=== PATIENT | male | born 1970 | race Caucasian/White ===

== ENCOUNTER 2018-12-24 23:54 | Inpatient (IN) | payer SELFPAY ==
[2018-12-25] MEDS ORDERED: Ondansetron ODT 4 MG TAB SL PRN (01:57)
[2018-12-25] MEDS ORDERED: Ondansetron PF 4 MG/2 ML Vial IVP PRN (01:57)
[2018-12-25] MEDS ORDERED: Sodium Chloride 0.9% 1,000 ML IV SCH (01:57)
[2018-12-25 02:02] VITALS: BMI 31.6
[2018-12-25] MEDS ORDERED: hydrALAZINE 20 MG/ML VIAL SLOW IVP PRN (04:05)
--- NOTE | 2018-12-25 04:08 | PDOC.EVN ---
Event Note - Event Note Event Note: Reviewed patients chart, as to be seen by AM team per attending. Noticed BP elevated 200 systolic, now 180s, ordered Hydralazine 5 mg PRN. A consult has already been placed to Neuro. I have added an MRI Brain. Per ED Report taken: CT Brain negative. Patient with symptoms for >24 hours. Will add carotid US and Echo. Further recommendations per day team.
[2018-12-25] MEDS ORDERED: Aspirin Chewable 81 MG TAB PO SCH (09:00)
[2018-12-25] MEDS: cloNIDine 0.1 MG TAB PO PRN ×2 (09:15→20:51)
[2018-12-25] MEDS: Amlodipine 10 MG TAB PO SCH (09:17)
[2018-12-25] MEDS: Heparin 5,000 UNITS/ML VIAL SC SCH ×2 (09:17→20:51)
--- NOTE | 2018-12-25 09:45 | ULT ---
US Carotid Doppler STANDARD HISTORY: Stroke COMPARISON: None. FINDINGS: Real-time color Doppler evaluation the right and left carotid systems was performed. This s hows minimal plaque formation. On the right side peak systolic velocities of the common carotid were 98 cm/s. Internal carotid veloc ities 91 cm/s and external carotid velocities were 113 cm/s. On the left side peak systolic velocities the common carotid were 96 cm/s. Internal carotid velocity 62 cm/s and external carotid velocity 70 once Vertebral flow is antegrade bilaterally. IMPRESSION: No evidence of hemodynamically significant stenosis of either internal carotid artery.
--- NOTE | 2018-12-25 10:23 | MRI ---
Exam: Brain MRI without contrast HISTORY: Left-sided weakness. Eval for CVA. COMPARISON: None FINDINGS: Calvarial marrow signal intensity: Appropriate T1 signal Gradient echo sequence: No hemorrhage Brain parenchyma: No mass, mass effect or midline shift. Brain volume, age-appropriate. Cortical crandall-white matter differentiation: Preserved Restricted diffusion: Central arterial flow is maintained. There is a focus of T2 and FLAIR hyperinte nsity involving the lateral aspect of the right thalamus. There is associated restricted diffusion. White matter signal intensities:No significant T2 or FLAIR white matter hyperintensities. Sinuses: Adequate aeration of the paranasal sinuses and mastoid air cells. IMPRESSION: Acute infarct involving the lateral aspect of the right thalamus
--- NOTE | 2018-12-25 10:29 | PDOC.EVN ---
Event Note - Event Note Event Note: H&P dictated #[id number]
[2018-12-25] MEDS ORDERED: ISOVUE-370 76%-LOCM 1 ML ONE (11:36)
[2018-12-25] MEDS ORDERED: Aspirin 81 mg Enteric Coated Tablet PO SCH (14:15)
--- NOTE | 2018-12-25 16:43 | CT ---
Exam: Noncontrast head CT Postcontrast head CT Postcontrast soft tissue neck CT CT angiogram of the head and neck History: Right thalamic infarct Comparison: None TECHNIQUE: CT angiogram of the head and neck are performed in the axial plane. Three-dimensional refo rmatted images are submitted FINDINGS: Noncontrast head CT: No parenchymal hemorrhage or extra-axial hematoma. No midline shift Basilar cisterns are patent. Brain volume, age-appropriate. Cortical crandall-white matter differentiation preserved. No evidence of hydrocephalus. Calvarium is intact. Postcontrast head CT: No pathologic enhancement of the brain parenchyma. Subtle hypodensity along the lateral margin of the right thalamus is noted and corresponds to recent MRI. Postcontrast soft tissue neck CT Orbits are unremarkable. Aerodigestive tract is patent. Limited eval uation the oral cavity due to dental amalgam artifact. Midline fatty raphae of the tongue is preserved.. Symmetric attenuation of the parotid and submandibular glands. Unremarkable thyroid gland. Symmetric attenuation sternocleidomastoid muscles. No evidence of lymphadenopathy by size criteria There are varying degrees of central canal stenosis and foraminal narrowing due to degenerative daniel e. Vertebral body height is maintained. No fracture Mediastinum is unremarkable. Patchy groundglass infiltrate in the superior segment of the right lower lobe CT ANGIOGRAM: Unremarkable aorta. Right carotid: There is appropriate enhancement and luminal diameter the right common carotid artery, carotid bifurcation and internal carotid artery. Left carotid: There is appropriate enhancement and luminal diameter the left carotid artery origin, c ommon carotid artery, carotid bifurcation and internal carotid artery. Cervical vertebral arteries are patent throughout the course of the neck. Left vertebral artery is do minant. Subclavian arteries are patent. CT angiogram the head Intracranial internal carotid arteries have enhancement and luminal diameter. Anterior circulation: Symmetric enhancement and luminal diameter the A1 and M1 segments. Proximal A2 segments and proximal MCA branches are unremarkable. There is appropriate enhancement and luminal diameter. Posterior circulation: Right PICA artery origin is unremarkable. Limited evaluation the left PICA art bennie origin. Both vertebral arteries supply normal caliber basilar artery. The left and right P1 segments have symmetric enhancement and luminal diameter. IMPRESSION: 1. No evidence of significant stenosis at the level of [place] 2. No evidence of significant stenosis based upon NASCET criteria with regards to either cervical car otid artery. Transcribed Date/Time: 12/25/2018 5:23 PM
[2018-12-25] MEDS: Acetaminophen 325 MG TAB PO PRN (16:46)
--- NOTE | 2018-12-25 16:53 | HP ---
CHIEF COMPLAINT: Left-sided numbness. HISTORY OF PRESENT ILLNESS: This is a 48-year-old male, presenting with left-sided arm side and leg numbness as well as some mild speech problems yesterday. The patient does state that his speech problems have improved, but the numbness on the whole body on the left is still present. The patient states that he has never had this happened to him before. He denies any other associated symptoms. No other alleviating or aggravating factors. No pain issues. ALLERGIES: LISINOPRIL AND TRAMADOL. SOCIAL HISTORY: Nondrinker and nonsmoker. PAST MEDICAL HISTORY: Positive for hypertension, high cholesterol, as well as back pain. REVIEW OF SYSTEMS: All systems reviewed, pertinent positive in HPI, otherwise negative. HOME MEDICATIONS: See MAR. FAMILY HISTORY: Unknown. PHYSICAL EXAMINATION: VITAL SIGNS: Blood pressure 194/106, temperature of 97.7, pulse of 69, O2 saturations 94% on room air, and respiratory rate of 15. GENERAL: The patient is in no acute distress. Alert and oriented. HEENT: Pupils are equal, round, and reactive to light and accommodation. Extraocular muscles intact. Oral cavity moist and pink. NECK: Supple, mobile, and nontender. Thyroid appreciated. CARDIOVASCULAR: Regular rate and rhythm. S1 and S2. No murmurs, rubs, or gallops appreciated. ABDOMEN: Positive bowel sounds. Soft, nontender, and nondistended. PULMONARY: Clear to auscultation bilaterally. No rales, rhonchi, or wheezing appreciated. NEUROLOGICAL: Cranial nerves II through XII intact. Left-sided inspector fabric strength on the left hand as well as elbow flexion, shoulder abduction, left hip flexion, and left knee extension and flexion all slightly decreased as compared to the right. ASSESSMENT: 1. Transient ischemic attack, rule out cerebrovascular accident. 2. Left-sided numbness. 3. Hyperlipidemia. 4. Hypertension. 5. Back pain. PLAN: 1. At this point in time, we will stop the IV fluids. The patient has been having high blood pressure. We will also start the patient on atorvastatin and Norvasc 10 mg to be given daily to be started today. Hold if systolic less than 120. 2. The patient pending image studies. 3. Neurological evaluation also pending. 4. At this point in time, continue with workup. Images to be done. Neurological evaluation to be done. We will consider PT/OT depending on outcome. Echo also pending. The patient wishes to remain a full code. Case and plan discussed with patient at length. He understood and agreed with this plan. Job ID: [id number]
[2018-12-25] MEDS: Zolpidem Tartrate 5 MG TAB PO PRN (20:51)
[2018-12-25] MEDS: Atorvastatin Calcium 40 MG TAB PO SCH (20:51)
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
[2018-12-26 05:55] LABS: #Basophils 0.1 thou/uL (0.0-0.2); #Eosinphils 0.2 thou/uL (0.0-0.7); #Monocytes 0.5 thou/uL (0.11-0.59); #Neutrophils 3.8 thou/uL (1.40-6.50); %Basophils 0.9 % (0.0-1.0); %Eosinophils 2.9 % (0.0-10.0); %Lymphocytes 31.1 % (21.0-51.0); %Monocytes 7.1 % (0.0-10.0); Hemoglobin 14.2 g/dL (14.0-18.0); Mean Corpuscular HGB CONC 33.6 g/dL (32.0-36.0); Mean Corpuscular Hemoglobin 30.3 pg (27.0-31.0); Mean Corpuscular Volume 90.4 fL (78.0-98.0); Mean Platelet Volume 8.7 fL (7.4-10.4); Platelet Count 264 thou/uL (130-400); RBC Distribution Width 13.1 % (11.5-14.5); White Blood Cell (WBC) Count 6.5 thou/uL (4.8-10.8)
[2018-12-26 06:09] LABS: Anion Gap 11 mmol/L (10-20); BUN (Urea Nitrogen) 12 mg/dL (8.9-20.6); Calc. Creatinine Clearance 141 mL/min (70-130); Calcium 9.2 mg/dL (7.8-10.44); Carbon Dioxide 28 mmol/L (22-29); Chloride 103 mmol/L (98-107); Estimated GFR-MDRD Greater than 90; Glucose 90 mg/dL (70-105); Potassium 3.7 mmol/L (3.5-5.1); Sodium 138 mmol/L (136-145)
[2018-12-26] MEDS ORDERED: Senokot S 8.6-50 MG TAB PO PRN (07:13)
[2018-12-26] MEDS ORDERED: Diabetic Tussin 200 MG/10 ML UDCUP PO PRN (07:13)
[2018-12-26] MEDS ORDERED: Sodium Chloride 0.65% Nasal 44 ML BOT EA NARE PRN (07:13)
[2018-12-26] MEDS ORDERED: Ondansetron PF 4 MG/2 ML Vial IVP PRN (07:13)
[2018-12-26] MEDS ORDERED: Bisacodyl 10 MG SUPP PR PRN (07:13)
[2018-12-26] MEDS ORDERED: Artificial Tears 18 DROP/0.9 ML EA EYE PRN (07:13)
[2018-12-26] MEDS ORDERED: Loratadine 10 MG TAB PO PRN (07:13)
[2018-12-26] MEDS ORDERED: Loperamide HCl 2 MG CAP PO PRN (07:13)
[2018-12-26] MEDS ORDERED: Cepastat Lozenges 1 LOZ PO PRN (07:13)
[2018-12-26] MEDS ORDERED: Ondansetron ODT 4 MG TAB PO PRN (07:13)
[2018-12-26] MEDS: Heparin 5,000 UNITS/ML VIAL SC SCH ×2 (09:02→21:27)
[2018-12-26] MEDS: Amlodipine 10 MG TAB PO SCH (09:02)
[2018-12-26] MEDS: Aspirin 81 mg Enteric Coated Tablet PO SCH (09:03)
[2018-12-26 11:07] LABS: ALT (SGPT) 14 U/L (8-55); AST (SGOT) 16 U/L (5-34); Albumin 3.9 g/dL (3.5-5.0); Alkaline Phosphatase 71 U/L (40-150); Bilirubin, Direct 0.2 mg/dL (0.1-0.3); Bilirubin, Total 0.5 mg/dL (0.2-1.2); Cardiac Risk 7.3 (Less than 4.5); Cholesterol 254 mg/dl (< 200 Desired); HDL Cholesterol 35 mg/dL (>60 Neg Risk); LDL Cholesterol, Calculated 191 mg/dL; Protein, Total 6.9 g/dL (6.0-8.3); Triglycerides 139 mg/dL (Less than 150)
--- NOTE | 2018-12-26 11:15 | PRG ---
DATE OF TELEMEDICINE SERVICE WITH BRITTANY PILY: 12/26/2018 CHIEF COMPLAINT: Left-sided weakness and numbness. INTERVAL HISTORY: The patient reports his left side is much better and he is doing better, and he was even walking with the help of physical therapist. No new events are reported overnight. LABORATORY WORKUP: White count 6.5, hemoglobin 14.2, hematocrit 42.5, platelets 264. Chemistry; sodium 138, potassium 3.7, chloride 103, bicarb 28, BUN 12, creatinine 0.74. No new imaging studies are available. His echocardiogram report is showing estimated EF of 40% to 45% and mild diastolic dysfunction. PHYSICAL EXAMINATION: VITAL SIGNS: Temperature is 97.7, blood pressure is 146/86, pulse rate is 69, respiratory rate is 16. NEUROLOGICAL: Higher intellectual functions are normal. Cranial nerves, normal extraocular movement. No facial asymmetry noted. Decreased sensation of face on the left side. Sensory exam, decreased sensation of the left arm and leg and strength 5/5 throughout today. IMPRESSION: The patient is doing much better today compared to yesterday. He has a right thalamic infarct. At this time, he remains stable. This thalamic infarct is likely due to hypertensive event. RECOMMENDATION: Continue present plans for anti-platelet agent and follow up with Dr. Rose as outpatient. Job ID: [id number] [facility]
[2018-12-26 11:23] LABS: Syphilis Antibody Nonreactive (Nonreactive); Syphilis Antibody Index 0.04 S/CO (<1.00 Non-Reactive)
--- NOTE | 2018-12-26 11:26 | PDOC.PN ---
- Subjective Encounter Start Date: 12/26/18 Encounter Start Time: 07:30 -: old records requested/rev Patient seen and examined. No new complaints. No overnight events pt has numbness feeling on left side - Objective MAR Reviewed: Yes Vital Signs & Weight: Vital Signs (12 hours) Temp Pulse Resp BP BP Pulse Ox 12/26/18 09:02 62 157/94 H 12/26/18 03:51 97.6 F 69 16 146/86 H 97 12/25/18 23:32 97.7 F 79 16 132/81 95 Weight Weight 184 lb 6.4 oz I&O: 12/25/18 12/26/18 12/27/18 06:59 06:59 06:59 Intake Total 855 760 Output Total 300 1550 Balance 555 -790 Result Diagrams: 12/26/18 05:03 12/26/18 05:03 Radiology Reviewed by me: Yes EKG Reviewed by me: Yes Phys Exam - Physical Examination Constitutional: NAD HEENT: PERRLA, moist MMs, sclera anicteric Neck: no JVD, supple Respiratory: no wheezing, no rales, no rhonchi Cardiovascular: RRR, no significant murmur, no rub Gastrointestinal: soft, non-tender, no distention, positive bowel sounds Musculoskeletal: no edema, pulses present Neurological: non-focal, normal sensation Lymphatic: no nodes Psychiatric: normal affect, A&O x 3 Skin: no rash, normal turgor Dx/Plan (1) Acute CVA (cerebrovascular accident) Code(s): I63.9 - CEREBRAL INFARCTION, UNSPECIFIED Status: Acute Comment: Acute infarct in lateral aspect of right thalamus (2) Chronic low back pain Code(s): M54.5 - LOW BACK PAIN; G89.29 - OTHER CHRONIC PAIN Status: Chronic (3) Dyslipidemia Code(s): E78.5 - HYPERLIPIDEMIA, UNSPECIFIED Status: Chronic (4) Hypertension Code(s): I10 - ESSENTIAL (PRIMARY) HYPERTENSION Status: Chronic (5) Obesity (BMI 30.0-34.9) Code(s): E66.9 - OBESITY, UNSPECIFIED Status: Chronic (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 Review of Systems - Review of Systems ENT: negative: Ear Pain, Ear Discharge, Nose Pain, Nose Discharge, Nose Congestion, Mouth Pain, Mouth Swelling, Throat Pain, Throat Swelling, Other Respiratory: negative: Cough, Dry, Shortness of Breath, Hemoptysis, SOB with Excertion, Pleuritic Pain, Sputum, Wheezing Cardiovascular: negative: chest pain, palpitations, orthopnea, paroxysmal nocturnal dyspnea, edema, light headedness, other Gastrointestinal: negative: Nausea, Vomiting, Abdominal Pain, Diarrhea, Constipation, Melena, Hematochezia, Other Genitourinary: negative: Dysuria, Frequency, Incontinence, Hematuria, Retention , Other Musculoskeletal: negative: Neck Pain, Shoulder Pain, Arm Pain, Back Pain, Hand Pain, Leg Pain, Foot Pain, Other Skin: negative: Rash, Lesions, Carlito, Bruising, Other Neurological: Numbness. negative: Weakness, Incoordination, Change in Speech, Confusion, Seizures, Other - Medications/Allergies Allergies/Adverse Reactions: Allergies Allergy/AdvReac Type Severity Reaction Status Date / Time lisinopril Allergy Severe ANGIOEDEMA Verified 06/02/15 22:09 tramadol HCl [From Ultra] Allergy Severe SEIZURE Verified 06/02/15 22:09 Medications: Current Medications Acetaminophen (Tylenol) 650 mg PO Q4H PRN PRN Reason: Headache/Fever/Mild Pain (1-3) Last Admin: 12/25/18 16:46 Dose: 650 mg Amlodipine Besylate (Norvasc) 10 mg PO DAILY [facility] Last Admin: 12/26/18 09:02 Dose: 10 mg Artificial Tears (Tears Naturale) 2 drop EA EYE PRN PRN PRN Reason: Dry Eyes Aspirin (Ecotrin) 81 mg PO DAILY [facility] Last Admin: 12/26/18 09:03 Dose: 81 mg Atorvastatin Calcium (Lipitor) 40 mg PO HS [facility] Last Admin: 12/25/18 20:51 Dose: 40 mg Bisacodyl (Dulcolax) 10 mg MD DAILYPRN PRN PRN Reason: Constipation Clonidine (Catapres) 0.1 mg PO Q4H PRN PRN Reason: FOR SBP > 170mmHg Last Admin: 12/25/18 20:51 Dose: 0.1 mg Guaifenesin (Robitussin Sf) 200 mg PO Q4H PRN PRN Reason: Cough Heparin Sodium (Porcine) (Heparin) 5,000 units SC BID [facility] Last Admin: 12/26/18 09:02 Dose: 5,000 units Hydralazine HCl (Apresoline) 5 mg SLOW IVP Q4H PRN PRN Reason: SBP Greater Than 180 Last Admin: 12/25/18 06:00 Dose: 5 mg Loperamide HCl (Imodium) 2 mg PO PRN PRN PRN Reason: Diarrhea/Loose Stools Loratadine (Claritin) 10 mg PO DAILYPRN PRN PRN Reason: Sinus Symptoms Ondansetron HCl (Zofran Odt) 4 mg PO Q6H PRN PRN Reason: Nausea/Vomiting Ondansetron HCl (Zofran) 4 mg IVP Q6H PRN PRN Reason: Nausea/Vomiting Pantoprazole Sodium (Protonix) 40 mg PO DAILY [facility] Last Admin: 12/26/18 09:03 Dose: 40 mg Senna/Docusate Sodium (Senokot S) 2 tab PO BID PRN PRN Reason: Constipation Sodium Chloride ([place] 0.65%) 0 ml EA NARE QIDPRN PRN PRN Reason: Nasal Congestion Throat Lozenges (Cepastat Lozenges) 1 missael PO Q2H PRN PRN Reason: Sore Throat Zolpidem Tartrate (Ambien) 5 mg PO HSPRN PRN PRN Reason: Insomnia Last Admin: 12/25/18 20:51 Dose: 5 mg
[2018-12-26] MEDS: Acetaminophen 325 MG TAB PO PRN (13:56)
[2018-12-26] MEDS ORDERED: Carvedilol 3.125 MG TAB PO SCH (21:00)
[2018-12-26] MEDS: Atorvastatin Calcium 40 MG TAB PO SCH (21:27)
[2018-12-26] MEDS: Zolpidem Tartrate 5 MG TAB PO PRN (21:27)
[2018-12-27] MEDS: Aspirin 81 mg Enteric Coated Tablet PO SCH (08:30)
[2018-12-27] MEDS: Heparin 5,000 UNITS/ML VIAL SC SCH (08:30)
[2018-12-27] MEDS: Amlodipine 10 MG TAB PO SCH (08:30)
[2018-12-27] MEDS ORDERED: Carvedilol 6.25 MG TAB PO SCH (09:00)
--- NOTE | 2018-12-27 10:29 | PDOC.PN ---
- Subjective Encounter Start Date: 12/27/18 Encounter Start Time: 07:00 Patient seen and examined. No new complaints. No overnight events pt has numbness feeling on left side - Objective MAR Reviewed: Yes Vital Signs & Weight: Vital Signs (12 hours) Temp Pulse Resp BP BP BP Pulse Ox 12/27/18 08:30 66 169/107 H 12/27/18 07:15 97.8 F 66 18 169/107 H 98 12/27/18 04:00 97.5 F L 68 18 154/91 H 96 12/27/18 00:00 98.2 F 83 18 137/78 96 Weight Weight 184 lb 6.4 oz I&O: 12/26/18 12/27/18 12/28/18 06:59 06:59 06:59 Intake Total 760 1040 Output Total 1550 775 Balance -790 265 Result Diagrams: 12/26/18 05:03 12/26/18 05:03 EKG Reviewed by me: Yes Phys Exam - Physical Examination Constitutional: NAD HEENT: PERRLA, moist MMs, sclera anicteric Neck: no JVD, supple Respiratory: no wheezing, no rales, no rhonchi Cardiovascular: RRR, no significant murmur, no rub Gastrointestinal: soft, non-tender, no distention, positive bowel sounds Musculoskeletal: no edema, pulses present Neurological: non-focal, normal sensation, moves all 4 limbs Lymphatic: no nodes Psychiatric: normal affect, A&O x 3 Skin: no rash, normal turgor Dx/Plan (1) Acute CVA (cerebrovascular accident) Code(s): I63.9 - CEREBRAL INFARCTION, UNSPECIFIED Status: Acute Comment: Acute infarct in lateral aspect of right thalamus (2) Chronic low back pain Code(s): M54.5 - LOW BACK PAIN; G89.29 - OTHER CHRONIC PAIN Status: Chronic (3) Dyslipidemia Code(s): E78.5 - HYPERLIPIDEMIA, UNSPECIFIED Status: Chronic (4) Hypertension Code(s): I10 - ESSENTIAL (PRIMARY) HYPERTENSION Status: Chronic (5) Obesity (BMI 30.0-34.9) Code(s): E66.9 - OBESITY, UNSPECIFIED Status: Chronic (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 Review of Systems - Review of Systems Eyes: negative: Pain, Vision Change, Conjunctivae Inflammation, Eyelid Inflammation, Redness, Other ENT: negative: Ear Pain, Ear Discharge, Nose Pain, Nose Discharge, Nose Congestion, Mouth Pain, Mouth Swelling, Throat Pain, Throat Swelling, Other Respiratory: negative: Cough, Dry, Shortness of Breath, Hemoptysis, SOB with Excertion, Pleuritic Pain, Sputum, Wheezing Cardiovascular: negative: chest pain, palpitations, orthopnea, paroxysmal nocturnal dyspnea, edema, light headedness, other Gastrointestinal: negative: Nausea, Vomiting, Abdominal Pain, Diarrhea, Constipation, Melena, Hematochezia, Other Genitourinary: negative: Dysuria, Frequency, Incontinence, Hematuria, Retention , Other Musculoskeletal: negative: Neck Pain, Shoulder Pain, Arm Pain, Back Pain, Hand Pain, Leg Pain, Foot Pain, Other Skin: negative: Rash, Lesions, Carlito, Bruising, Other Neurological: Numbness. negative: Weakness, Incoordination, Change in Speech, Confusion, Seizures, Other - Medications/Allergies Allergies/Adverse Reactions: Allergies Allergy/AdvReac Type Severity Reaction Status Date / Time lisinopril Allergy Severe ANGIOEDEMA Verified 06/02/15 22:09 tramadol HCl [From [facility]] Allergy Severe SEIZURE Verified 06/02/15 22:09 Medications: Current Medications Acetaminophen (Tylenol) 650 mg PO Q4H PRN PRN Reason: Headache/Fever/Mild Pain (1-3) Last Admin: 12/26/18 13:56 Dose: 650 mg Amlodipine Besylate (Norvasc) 10 mg PO DAILY [facility] Last Admin: 12/27/18 08:30 Dose: 10 mg Artificial Tears (Tears Naturale) 2 drop EA EYE PRN PRN PRN Reason: Dry Eyes Aspirin (Ecotrin) 81 mg PO DAILY [facility] Last Admin: 12/27/18 08:30 Dose: 81 mg Atorvastatin Calcium (Lipitor) 40 mg PO HS [facility] Last Admin: 12/26/18 21:27 Dose: 40 mg Bisacodyl (Dulcolax) 10 mg DC DAILYPRN PRN PRN Reason: Constipation Carvedilol (Coreg) 6.25 mg PO BID [facility] Last Admin: 12/27/18 08:30 Dose: 6.25 mg Clonidine (Catapres) 0.1 mg PO Q4H PRN PRN Reason: FOR SBP > 170mmHg Last Admin: 12/25/18 20:51 Dose: 0.1 mg Guaifenesin (Robitussin Sf) 200 mg PO Q4H PRN PRN Reason: Cough Heparin Sodium (Porcine) (Heparin) 5,000 units SC BID [facility] Last Admin: 12/27/18 08:30 Dose: 5,000 units Hydralazine HCl (Apresoline) 5 mg SLOW IVP Q4H PRN PRN Reason: SBP Greater Than 180 Last Admin: 12/25/18 06:00 Dose: 5 mg Loperamide HCl (Imodium) 2 mg PO PRN PRN PRN Reason: Diarrhea/Loose Stools Loratadine (Claritin) 10 mg PO DAILYPRN PRN PRN Reason: Sinus Symptoms Ondansetron HCl (Zofran Odt) 4 mg PO Q6H PRN PRN Reason: Nausea/Vomiting Ondansetron HCl (Zofran) 4 mg IVP Q6H PRN PRN Reason: Nausea/Vomiting Pantoprazole Sodium (Protonix) 40 mg PO DAILY [facility] Last Admin: 12/27/18 08:30 Dose: 40 mg Senna/Docusate Sodium (Senokot S) 2 tab PO BID PRN PRN Reason: Constipation Sodium Chloride ([place] 0.65%) 0 ml EA NARE QIDPRN PRN PRN Reason: Nasal Congestion Throat Lozenges (Cepastat Lozenges) 1 missael PO Q2H PRN PRN Reason: Sore Throat Zolpidem Tartrate (Ambien) 5 mg PO HSPRN PRN PRN Reason: Insomnia Last Admin: 12/26/18 21:27 Dose: 5 mg
[2018-12-27] MEDS: Acetaminophen 325 MG TAB PO PRN (15:32)
[2018-12-27 20:17] VITALS: BP 165/95; TEMP 98.6
--- NOTE | 2018-12-28 06:46 | DIS ---
DATE OF ADMISSION: 12/25/2018 DATE OF DISCHARGE: 12/27/2018 PRIMARY CARE PHYSICIAN: [facility]. DISCHARGE DISPOSITION: Home. PRIMARY DISCHARGE DIAGNOSES: 1. Acute cerebrovascular accident. 2. Combined systolic and diastolic dysfunction. SECONDARY DISCHARGE DIAGNOSES: 1. Obesity. 2. Hypertension. 3. Dyslipidemia. 4. Chronic low back pain. PRIMARY PROCEDURES/OPERATIONS: None. RADIOLOGICAL INVESTIGATION: Carotid Doppler, MRI brain, [facility] [place], and echocardiography. SIGNIFICANT LABORATORY DATA: CBC normal. BMP normal. LDL 191. Syphilis negative. DISCHARGE MEDICATIONS: 1. Amlodipine 10 mg daily. 2. Aspirin 325 mg daily. 3. Lipitor 40 mg p.o. nightly. 4. Coreg 6.25 mg p.o. b.i.d. CONTRAINDICATION: None. CODE STATUS: Full code. INPATIENT ELECTRICAL SIGN SERVICER: Dr. Antonia Dougherty, neurologist. TEST RESULTS PENDING ON DISCHARGE: None. ALLERGIES: LISINOPRIL AND TRAMADOL. DISCHARGE PLAN: Posthospital, the patient will follow up with primary care physician in one week. HOSPITAL COURSE: A 48-year-old male, who was admitted by Dr. Raza. Please see his H and P for further details. The patient was admitted for acute onset of numbness, paresthesia on left side of body. He had an MRI brain which confirmed infarct in the right lateral thalamus that was contributing to his presentation. His carotid Doppler was normal. Echocardiography showed systolic and diastolic dysfunction. CT [facility] [place] was unremarkable. Neurology saw this patient while in hospital. This patient was evaluated by Stroke Team. He had significant improvement while in hospital. He had only little bit numbness on the left side on discharge. He had above-mentioned medication adjustment while in hospital. The patient was seen and examined at bedside today. Please see my progress note from that day. All new medication prescription given and medication assistance provided on the day of discharge. Job ID: [id number]
== END 2018-12-27 20:00 | disposition home or self-care (01) | DRG 65 ==
LOC: ERS 23:54 → OBSVTOIN 12-25 01:46 → 2SE 12-25 01:46
PROVIDERS: ADMIT Internal Medicine; ATTEND Internal Medicine
DX: I63.59 Cerebral infarction due to unspecified occlusion or stenosis of other cerebral artery (principal); G81.94 Hemiplegia, unspecified affecting left nondominant side; E78.00 Pure hypercholesterolemia, unspecified; I10 Essential (primary) hypertension; M54.5 Low back pain; I51.89 Other ill-defined heart diseases; R29.701 NIHSS score 1; Z88.5 Allergy status to narcotic agent; Z88.8 Allergy status to other drugs, medicaments and biological substances
CPT/HCPCS: 36415; 70496; 70498; 70551; 80048; 80061; 80076; 83090; 84443; 85025; 86780; 93306; 93880; 99285; J0360; J1644; Q9966

== ENCOUNTER 2019-01-09 00:54 | Emergency (ER) | payer SELFPAY | END 2019-01-09 02:03 | disposition home or self-care (01) | LOC: ERS 00:54 | DX: J30.9 Allergic rhinitis, unspecified (principal); I10 Essential (primary) hypertension; E78.5 Hyperlipidemia, unspecified; K21.9 Gastro-esophageal reflux disease without esophagitis; G62.9 Polyneuropathy, unspecified; F41.9 Anxiety disorder, unspecified; F32.9 Major depressive disorder, single episode, unspecified; Z79.899 Other long term (current) drug therapy | CPT/HCPCS: 99281 ==

== ENCOUNTER 2019-05-17 16:18 | Outpatient (CLI) | payer OTHER ==
--- NOTE | 2019-05-17 17:13 | RAD ---
PA AND LATERAL VIEWS CHEST: 05/16/19 HISTORY: Disability exam. Left sided stroke. Hypertension. FINDINGS: The heart size is normal. There is elevation of the right hemidiaphragm. No focal areas of consolidat ion, pneumothoraces or pleural effusions are seen. No acute thoracic abnormalities are identified. IMPRESSION: No acute process. POS: OFF
== END 2019-05-17 16:19 | disposition home or self-care (01) ==
LOC: BICRAD 16:18
PROVIDERS: ATTEND Internal Medicine
DX: Z02.71 Encounter for disability determination (principal)
CPT/HCPCS: 71046

== ENCOUNTER 2020-05-17 15:53 | Emergency (ER) | payer SELFPAY ==
[2020-05-17 16:21] LABS: #Eosinphils 0.1 thou/uL (0.0-0.7); #Lymphocytes 1.8 thou/uL (1.20-3.40); #Monocytes 0.6 thou/uL (0.11-0.59); #Neutrophils 5.9 thou/uL (1.40-6.50); %Basophils 0.2 % (0.0-1.0); %Eosinophils 1.4 % (0.0-10.0); %Lymphocytes 21.7 % (21.0-51.0); %Neutrophils 69.7 % (42.0-75.0); Mean Corpuscular HGB CONC 33.1 g/dL (32.0-36.0); Mean Corpuscular Hemoglobin 29.5 pg (27.0-31.0); Mean Corpuscular Volume 89.1 fL (78.0-98.0); Mean Platelet Volume 8.3 fL (7.4-10.4); Platelet Count 281 thou/uL (130-400); RBC Distribution Width 13.3 % (11.5-14.5); Red Blood Cell (RBC) Count 5.07 mill/uL (4.70-6.10); White Blood Cell (WBC) Count 8.4 thou/uL (4.8-10.8)
[2020-05-17 16:41] LABS: ALT (SGPT) 32 U/L (8-55); AST (SGOT) 23 U/L (5-34); Albumin 4.4 g/dL (3.5-5.0); Alkaline Phosphatase 129 U/L (40-110); Anion Gap 16 mmol/L (10-20); BUN (Urea Nitrogen) 12 mg/dL (8.4-25.7); Bilirubin, Total 0.6 mg/dL (0.2-1.2); Calc. Creatinine Clearance 0 mL/min (70-130); Calcium 9.2 mg/dL (7.8-10.44); Carbon Dioxide 23 mmol/L (22-29); Chloride 101 mmol/L (98-107); Estimated GFR-MDRD 85; Globulin 3.5 g/dL (2.4-3.5); Glucose 136 mg/dL (70-105); Potassium 3.2 mmol/L (3.5-5.1); Protein, Total 7.9 g/dL (6.0-8.3); Sodium 137 mmol/L (136-145)
[2020-05-17] MEDS ORDERED: Meclizine HCl 25 MG TAB ONE (17:25)
--- NOTE | 2020-05-17 17:56 | CT ---
CT BRAIN NONCONTRAST: DATE: 05/17/2020 HISTORY: 50-year-old male with dizziness and generalized weakness FINDINGS: There is no evidence of acute intra-axial or extra-axial hemorrhage. There is no midline shift or any other mass effect. There is no extra-axial fluid collection. There is no evidence of obstructive hydrocephalus. Calvarium is intact. IMPRESSION: No acute intracranial findings.
--- NOTE | 2020-05-17 18:03 | RAD ---
PORTABLE CHEST: 05/17/20 HISTORY: Dizziness. Lungs are clear. No infiltrate. Heart and mediastinum unremarkable. IMPRESSION: No acute process. POS: AGW
[2020-05-17 18:59] LABS: Amphetamine Not Detected (NotDetected); Barbiturates Screen Not Detected (NotDetected); Benzodiazepine Screen Detected (NotDetected); Cocaine Metabolite Screen Not Detected (NotDetected); Medtox Control Line Valid? VALID (VALID); Medtox Reader # READER 4; Methadone Not Detected (NotDetected); Methamphetamine Not Detected (NotDetected); Opiate Screen Not Detected (NotDetected); Oxycodone Screen Not Detected (NotDetected); Phencyclidine (PCP) Not Detected (NotDetected); THC/Cannabinoid Screen Not Detected (NotDetected); Tricyclic Screen Not Detected (NotDetected)
[2020-05-17 19:22] LABS: Bacteria/HPF 3+ HPF (None Seen); Bilirubin Negative (Negative); Blood, Urine Negative (Negative); Clarity Turbid (Clear); Glucose, Urine (Dipstick) Normal (Negative); Ketone, Urine Negative (Negative); Leukocyte 500 Leu/uL (Negative); Nitrite Negative (Negative); Protein, Urine (Dipstick) Negative (Neg-Trace); RBC/HPF 0-3 HPF (0-3); Specific Gravity, Urine 1.009 (1.002-1.036); Squamous Epithelial None Seen HPF (0-3); Urobilinogen Normal mg/dL (Less than 2); WBC/HPF Greater than 50 HPF (0-3)
[2020-05-17] MEDS ORDERED: cefTRIAXone\\ROCEPHIN 1 GM VIAL ONE (20:10)
--- NOTE | 2020-05-19 17:13 | EKG ---
Test Reason : WEAKNESS/DIZZINESS Blood Pressure : / mmHG Vent. Rate : 078 BPM Atrial Rate : 078 BPM P-R Int : 164 ms QRS Dur : 098 ms QT Int : 394 ms P-R-T Axes : 044 007 080 degrees QTc Int : 449 ms Normal sinus rhythm Nonspecific T wave abnormality Abnormal ECG Confirmed by ABHAY PATE DO ([id number]), photography editor OLE KIDD ([id number]) on 05/19/2020 5:12:36 PM Referred By: MORENITANYO Confirmed By:ABHAY PATE DO
== END 2020-05-17 21:25 | disposition home or self-care (01) ==
LOC: ERS 15:53
DX: H81.399 Other peripheral vertigo, unspecified ear (principal); E78.5 Hyperlipidemia, unspecified; E78.00 Pure hypercholesterolemia, unspecified; I10 Essential (primary) hypertension; K21.9 Gastro-esophageal reflux disease without esophagitis; F41.9 Anxiety disorder, unspecified; F32.9 Major depressive disorder, single episode, unspecified
CPT/HCPCS: 36415; 70450; 71045; 80053; 80306; 81003; 81015; 84484; 85025; 93005; 96365; J0696

== ENCOUNTER 2020-09-20 19:44 | Emergency (ER) | payer SELFPAY | END 2020-09-20 21:56 | disposition home or self-care (01) | LOC: ERS 19:44 | DX: J06.9 Acute upper respiratory infection, unspecified (principal); E78.5 Hyperlipidemia, unspecified; I10 Essential (primary) hypertension; Z79.899 Other long term (current) drug therapy | CPT/HCPCS: 99283 ==

== ENCOUNTER 2021-04-04 14:41 | Emergency (ER) | payer SELFPAY ==
[2021-04-04 17:21] LABS: #Eosinphils 0.4 thou/uL (0.0-0.7); #Lymphocytes 1.8 thou/uL (1.20-3.40); #Monocytes 0.7 thou/uL (0.11-0.59); #Neutrophils 6.1 thou/uL (1.40-6.50); %Basophils 0.4 % (0.0-1.0); %Lymphocytes 19.7 % (21.0-51.0); %Monocytes 8.2 % (0.0-10.0); %Neutrophils 67.7 % (42.0-75.0); Hemoglobin 13.8 g/dL (14.0-18.0); Mean Corpuscular HGB CONC 34.1 g/dL (32.0-36.0); Mean Corpuscular Hemoglobin 29.8 pg (27.0-31.0); Mean Corpuscular Volume 87.3 fL (78.0-98.0); Mean Platelet Volume 7.9 fL (7.4-10.4); Platelet Count 324 thou/uL (130-400); RBC Distribution Width 13.3 % (11.5-14.5); Red Blood Cell (RBC) Count 4.63 mill/uL (4.70-6.10)
[2021-04-04 17:39] LABS: Anion Gap 11 mmol/L (10-20); BUN (Urea Nitrogen) 6 mg/dL (8.4-25.7); Calc. Creatinine Clearance 0 mL/min (70-130); Calcium 9.7 mg/dL (7.8-10.44); Carbon Dioxide 31 mmol/L (22-29); Chloride 102 mmol/L (98-107); Glucose 80 mg/dL (70-105); Sodium 140 mmol/L (136-145)
[2021-04-04 18:34] LABS: Bilirubin Negative (Negative); Blood, Urine Negative (Negative); Clarity Clear (Clear); Glucose, Urine (Dipstick) Normal (Negative); Ketone, Urine Negative (Negative); Leukocyte Negative Leu/uL (Negative); Nitrite Negative (Negative); Protein, Urine (Dipstick) Negative (Neg-Trace); Specific Gravity, Urine 1.011 (1.002-1.036); Urobilinogen Normal mg/dL (Less than 2)
== END 2021-04-04 19:54 | disposition home or self-care (01) ==
LOC: ERS 14:41
DX: N13.9 Obstructive and reflux uropathy, unspecified (principal); K76.9 Liver disease, unspecified; N28.89 Other specified disorders of kidney and ureter; E27.8 Other specified disorders of adrenal gland; E78.5 Hyperlipidemia, unspecified; E78.00 Pure hypercholesterolemia, unspecified; I10 Essential (primary) hypertension; K21.9 Gastro-esophageal reflux disease without esophagitis; G62.9 Polyneuropathy, unspecified; Z86.73 Personal history of transient ischemic attack (TIA), and cerebral infarction without residual deficits; Z79.899 Other long term (current) drug therapy
CPT/HCPCS: 36415; 51703; 74177; 80048; 81003; 85025

== ENCOUNTER 2021-04-18 11:57 | Emergency (ER) | payer SELFPAY ==
[2021-04-18 12:50] LABS: #Eosinphils 0.2 thou/uL (0.0-0.7); #Lymphocytes 1.6 thou/uL (1.20-3.40); #Monocytes 0.5 thou/uL (0.11-0.59); #Neutrophils 7.6 thou/uL (1.40-6.50); %Basophils 0.1 % (0.0-1.0); %Eosinophils 2.1 % (0.0-10.0); %Lymphocytes 15.6 % (21.0-51.0); %Monocytes 5.3 % (0.0-10.0); %Neutrophils 76.9 % (42.0-75.0); Hemoglobin 12.7 g/dL (14.0-18.0); Mean Corpuscular HGB CONC 34.9 g/dL (32.0-36.0); Mean Corpuscular Hemoglobin 30.2 pg (27.0-31.0); Mean Corpuscular Volume 86.5 fL (78.0-98.0); Mean Platelet Volume 7.9 fL (7.4-10.4); Platelet Count 338 thou/uL (130-400); RBC Distribution Width 13.3 % (11.5-14.5); Red Blood Cell (RBC) Count 4.22 mill/uL (4.70-6.10); White Blood Cell (WBC) Count 9.9 thou/uL (4.8-10.8)
[2021-04-18 13:06] LABS: Anion Gap 12 mmol/L (10-20); BUN (Urea Nitrogen) 11 mg/dL (8.4-25.7); Calc. Creatinine Clearance 0 mL/min (70-130); Carbon Dioxide 27 mmol/L (22-29); Chloride 102 mmol/L (98-107); Glucose 116 mg/dL (70-105); Sodium 138 mmol/L (136-145)
[2021-04-18 13:11] LABS: Potassium 2.9 mmol/L (3.5-5.1)
[2021-04-18 13:12] LABS: Bacteria/HPF None Seen HPF (None Seen); Bilirubin Negative (Negative); Blood, Urine Trace (Negative); Clarity Turbid (Clear); Glucose, Urine (Dipstick) Normal (Negative); Ketone, Urine Negative (Negative); Leukocyte 500 Leu/uL (Negative); Nitrite Negative (Negative); Protein, Urine (Dipstick) 10 mg/dL (Neg-Trace); RBC/HPF None Seen HPF (0-3); Specific Gravity, Urine 1.011 (1.002-1.036); Squamous Epithelial 0-3 HPF (0-3); Urobilinogen Normal mg/dL (Less than 2); WBC/HPF Greater than 50 HPF (0-3)
[2021-04-18] MEDS ORDERED: Potassium Chloride 20 MEQ TAB ONE (13:22)
[2021-04-18] MEDS ORDERED: cefTRIAXone\\ROCEPHIN 1 GM VIAL ONE (13:54)
[2021-04-18] MEDS ORDERED: Lidocaine 1% PF 5 ML VIAL ONE (13:54)
[2021-04-18 14:23] LABS: Magnesium 1.9 mg/dL (1.6-2.6)
[2021-04-18] MEDS ORDERED: Ketorolac Tromethamine 30 MG/ML VIAL ONE (14:24)
== END 2021-04-18 16:06 | disposition home or self-care (01) ==
LOC: ERS 11:57
DX: N39.0 Urinary tract infection, site not specified (principal); E87.6 Hypokalemia; R33.9 Retention of urine, unspecified; E78.5 Hyperlipidemia, unspecified; I10 Essential (primary) hypertension
CPT/HCPCS: 36415; 51702; 74176; 80048; 81003; 81015; 83735; 85025; 87077; 87086; 87186; 93005; 96372; 96374; J0696; J1885

== ENCOUNTER 2021-04-20 13:24 | Emergency (ER) | payer SELFPAY ==
[2021-04-20 16:30] LABS: Bilirubin Negative (Negative); Blood, Urine 2+ (Negative); Clarity Clear (Clear); Glucose, Urine (Dipstick) Normal (Negative); Ketone, Urine Negative (Negative); Leukocyte 250 Leu/uL (Negative); Nitrite Negative (Negative); Protein, Urine (Dipstick) 70 mg/dL (Neg-Trace); RBC/HPF Greater than 50 HPF (0-3); Specific Gravity, Urine 1.011 (1.002-1.036); Squamous Epithelial None Seen HPF (0-3); Urobilinogen Normal mg/dL (Less than 2)
[2021-04-20 16:33] LABS: Bacteria/HPF 1+ HPF (None Seen)
== END 2021-04-20 18:00 | disposition home or self-care (01) ==
LOC: ERS 13:24
DX: T83.091A Other mechanical complication of indwelling urethral catheter, initial encounter (principal); I10 Essential (primary) hypertension; E78.5 Hyperlipidemia, unspecified; E78.00 Pure hypercholesterolemia, unspecified; K21.9 Gastro-esophageal reflux disease without esophagitis; E11.42 Type 2 diabetes mellitus with diabetic polyneuropathy; Z86.73 Personal history of transient ischemic attack (TIA), and cerebral infarction without residual deficits; Z79.84 Long term (current) use of oral hypoglycemic drugs; Z79.899 Other long term (current) drug therapy
CPT/HCPCS: 81003; 81015; 99283

== ENCOUNTER 2021-05-07 14:15 | Emergency (ER) | payer SELFPAY ==
[2021-05-07 16:23] LABS: #Eosinphils 0.3 thou/uL (0.0-0.7); #Lymphocytes 1.7 thou/uL (1.20-3.40); #Monocytes 0.6 thou/uL (0.11-0.59); #Neutrophils 5.1 thou/uL (1.40-6.50); %Basophils 0.6 % (0.0-1.0); %Eosinophils 4.1 % (0.0-10.0); %Lymphocytes 21.5 % (21.0-51.0); %Monocytes 7.3 % (0.0-10.0); %Neutrophils 66.5 % (42.0-75.0); Hemoglobin 13.8 g/dL (14.0-18.0); Mean Corpuscular HGB CONC 33.1 g/dL (32.0-36.0); Mean Corpuscular Hemoglobin 28.7 pg (27.0-31.0); Mean Corpuscular Volume 86.6 fL (78.0-98.0); Mean Platelet Volume 8.5 fL (7.4-10.4); Platelet Count 264 thou/uL (130-400); RBC Distribution Width 13.6 % (11.5-14.5); White Blood Cell (WBC) Count 7.7 thou/uL (4.8-10.8)
[2021-05-07 16:40] LABS: ALT (SGPT) 11 U/L (8-55); AST (SGOT) 14 U/L (5-34); Albumin 4.2 g/dL (3.5-5.0); Alkaline Phosphatase 115 U/L (40-110); Anion Gap 11 mmol/L (10-20); BUN (Urea Nitrogen) 9 mg/dL (8.4-25.7); Bilirubin, Total 0.6 mg/dL (0.2-1.2); Calc. Creatinine Clearance 0 mL/min (70-130); Calcium 9.3 mg/dL (7.8-10.44); Carbon Dioxide 29 mmol/L (22-29); Chloride 100 mmol/L (98-107); Globulin 3.8 g/dL (2.4-3.5); Glucose 103 mg/dL (70-105); Potassium 3.2 mmol/L (3.5-5.1); Sodium 137 mmol/L (136-145)
[2021-05-07 16:52] LABS: Bacteria/HPF None Seen HPF (None Seen); Bilirubin Negative (Negative); Blood, Urine 2+ (Negative); Clarity Turbid (Clear); Glucose, Urine (Dipstick) Normal (Negative); Ketone, Urine Negative (Negative); Leukocyte 500 Leu/uL (Negative); Nitrite Negative (Negative); Protein, Urine (Dipstick) 100 mg/dL (Neg-Trace); RBC/HPF Greater than 50 HPF (0-3); Specific Gravity, Urine 1.012 (1.002-1.036); Squamous Epithelial None Seen HPF (0-3); Urobilinogen Normal mg/dL (Less than 2); WBC/HPF Greater than 50 HPF (0-3)
[2021-05-07] MEDS ORDERED: Potassium Chloride 20 MEQ TAB ONE (17:45)
== END 2021-05-07 17:56 | disposition home or self-care (01) ==
LOC: ERS 14:15
DX: T83.511A Infection and inflammatory reaction due to indwelling urethral catheter, initial encounter (principal); E87.6 Hypokalemia; E78.5 Hyperlipidemia, unspecified; E78.00 Pure hypercholesterolemia, unspecified; I10 Essential (primary) hypertension; K21.9 Gastro-esophageal reflux disease without esophagitis; G62.9 Polyneuropathy, unspecified; Z79.84 Long term (current) use of oral hypoglycemic drugs; Z79.899 Other long term (current) drug therapy
CPT/HCPCS: 36415; 51703; 80053; 81003; 81015; 85025; 87077; 87086; 87186

== ENCOUNTER 2021-05-09 15:18 | Emergency (ER) | payer SELFPAY | END 2021-05-09 17:36 | disposition home or self-care (01) | LOC: ERS 15:18 | DX: T83.091A Other mechanical complication of indwelling urethral catheter, initial encounter (principal); R30.0 Dysuria; E78.5 Hyperlipidemia, unspecified; E78.00 Pure hypercholesterolemia, unspecified; I10 Essential (primary) hypertension; K21.9 Gastro-esophageal reflux disease without esophagitis; G62.9 Polyneuropathy, unspecified; Z79.899 Other long term (current) drug therapy; Z79.84 Long term (current) use of oral hypoglycemic drugs; Z86.73 Personal history of transient ischemic attack (TIA), and cerebral infarction without residual deficits | CPT/HCPCS: 99283 ==

== ENCOUNTER 2021-06-11 14:46 | Emergency (ER) | payer SELFPAY ==
[2021-06-11 19:46] LABS: Bilirubin Negative (Negative); Blood, Urine 3+ (Negative); Clarity Turbid (Clear); Glucose, Urine (Dipstick) Normal (Negative); Ketone, Urine 10 mg/dL (Negative); Leukocyte 500 Leu/uL (Negative); Nitrite Negative (Negative); Protein, Urine (Dipstick) 100 mg/dL (Neg-Trace); RBC/HPF Greater than 50 HPF (0-3); Squamous Epithelial None Seen HPF (0-3); Urobilinogen Normal mg/dL (Less than 2); WBC/HPF Greater than 50 HPF (0-3); pH, Urine 6.5 (5.0-9.0)
[2021-06-11 19:48] LABS: Bacteria/HPF 1+ HPF (None Seen)
[2021-06-11 20:51] LABS: #Eosinphils 0.2 thou/uL (0.0-0.7); #Lymphocytes 1.8 thou/uL (1.20-3.40); #Monocytes 0.9 thou/uL (0.11-0.59); #Neutrophils 7.1 thou/uL (1.40-6.50); %Basophils 0.3 % (0.0-1.0); %Lymphocytes 17.7 % (21.0-51.0); %Monocytes 8.6 % (0.0-10.0); %Neutrophils 71.3 % (42.0-75.0); Hemoglobin 14.3 g/dL (14.0-18.0); Mean Corpuscular HGB CONC 34.4 g/dL (32.0-36.0); Mean Corpuscular Hemoglobin 29.9 pg (27.0-31.0); Mean Corpuscular Volume 87.1 fL (78.0-98.0); Mean Platelet Volume 8.3 fL (7.4-10.4); Platelet Count 273 thou/uL (130-400); RBC Distribution Width 13.8 % (11.5-14.5); Red Blood Cell (RBC) Count 4.76 mill/uL (4.70-6.10)
[2021-06-11 21:12] LABS: ALT (SGPT) 7 U/L (8-55); AST (SGOT) 12 U/L (5-34); Albumin 4.6 g/dL (3.5-5.0); Alkaline Phosphatase 114 U/L (40-110); Anion Gap 19 mmol/L (10-20); BUN (Urea Nitrogen) 16 mg/dL (8.4-25.7); Bilirubin, Total 0.5 mg/dL (0.2-1.2); Calc. Creatinine Clearance 0 mL/min (70-130); Calcium 9.7 mg/dL (7.8-10.44); Carbon Dioxide 22 mmol/L (22-29); Chloride 99 mmol/L (98-107); Globulin 4.3 g/dL (2.4-3.5); Glucose 90 mg/dL (70-105); Protein, Total 8.9 g/dL (6.0-8.3); Sodium 137 mmol/L (136-145)
[2021-06-11] MEDS ORDERED: Ketorolac Tromethamine 30 MG/ML VIAL ONE (21:52)
[2021-06-11] MEDS ORDERED: cefTRIAXone\\ROCEPHIN 2 GM VIAL ONE (21:52)
[2021-06-12] MEDS ORDERED: Potassium Chloride 20 MEQ TAB ONE (01:16)
== END 2021-06-12 01:49 | disposition home or self-care (01) ==
LOC: ERS 14:46
DX: R33.9 Retention of urine, unspecified (principal)
CPT/HCPCS: 36415; 51702; 80053; 81003; 81015; 83605; 85025; 87086; 96365; 96366; 96375; J0696; J1885

== ENCOUNTER 2021-06-12 10:42 | Emergency (ER) | payer SELFPAY ==
[2021-06-12 12:38] LABS: Bilirubin Negative (Negative); Blood, Urine 3+ (Negative); Clarity Extra Turbid (Clear); Glucose, Urine (Dipstick) Normal (Negative); Ketone, Urine 10 mg/dL (Negative); Leukocyte 500 Leu/uL (Negative); Nitrite Negative (Negative); Protein, Urine (Dipstick) 100 mg/dL (Neg-Trace); RBC/HPF Greater than 50 HPF (0-3); Squamous Epithelial None Seen HPF (0-3); Urobilinogen Normal mg/dL (Less than 2); WBC/HPF Greater than 50 HPF (0-3)
[2021-06-12 12:39] LABS: Bacteria/HPF 1+ HPF (None Seen)
== END 2021-06-12 14:05 | disposition home or self-care (01) ==
LOC: ERS 10:42
DX: T83.511A Infection and inflammatory reaction due to indwelling urethral catheter, initial encounter (principal); I10 Essential (primary) hypertension; E11.9 Type 2 diabetes mellitus without complications; E78.5 Hyperlipidemia, unspecified; N40.1 Benign prostatic hyperplasia with lower urinary tract symptoms; Z79.899 Other long term (current) drug therapy; Z79.84 Long term (current) use of oral hypoglycemic drugs
CPT/HCPCS: 51703; 81003; 87086

== ENCOUNTER 2021-06-24 19:04 | Emergency (ER) | payer SELFPAY ==
[2021-06-24 20:01] LABS: #Eosinphils 0.3 thou/uL (0.0-0.7); #Lymphocytes 1.7 thou/uL (1.20-3.40); #Monocytes 0.6 thou/uL (0.11-0.59); #Neutrophils 5.6 thou/uL (1.40-6.50); %Basophils 0.2 % (0.0-1.0); %Eosinophils 3.6 % (0.0-10.0); %Lymphocytes 20.5 % (21.0-51.0); %Monocytes 7.6 % (0.0-10.0); %Neutrophils 68.1 % (42.0-75.0); Hemoglobin 12.6 g/dL (14.0-18.0); Mean Corpuscular Hemoglobin 29.7 pg (27.0-31.0); Mean Corpuscular Volume 87.2 fL (78.0-98.0); Mean Platelet Volume 7.9 fL (7.4-10.4); Platelet Count 409 thou/uL (130-400); RBC Distribution Width 13.9 % (11.5-14.5); Red Blood Cell (RBC) Count 4.26 mill/uL (4.70-6.10); White Blood Cell (WBC) Count 8.2 thou/uL (4.8-10.8)
[2021-06-24 20:20] LABS: ALT (SGPT) 8 U/L (8-55); AST (SGOT) 14 U/L (5-34); Albumin 4.3 g/dL (3.5-5.0); Alkaline Phosphatase 95 U/L (40-110); Anion Gap 16 mmol/L (10-20); BUN (Urea Nitrogen) 12 mg/dL (8.4-25.7); Bilirubin, Total 0.4 mg/dL (0.2-1.2); Calc. Creatinine Clearance 0 mL/min (70-130); Calcium 9.3 mg/dL (7.8-10.44); Carbon Dioxide 23 mmol/L (22-29); Chloride 105 mmol/L (98-107); Globulin 3.4 g/dL (2.4-3.5); Glucose 93 mg/dL (70-105); Lipase 29 U/L (8-78); Potassium 3.5 mmol/L (3.5-5.1); Protein, Total 7.7 g/dL (6.0-8.3); Sodium 140 mmol/L (136-145)
[2021-06-24] MEDS ORDERED: Meclizine HCl 25 MG TAB ONE (21:43)
[2021-06-24 22:46] LABS: Bacteria/HPF 4+ HPF (None Seen); Bilirubin Negative (Negative); Blood, Urine 2+ (Negative); Calcium Oxalate Crystals 1+ HPF (None Seen); Clarity Extra Turbid (Clear); Glucose, Urine (Dipstick) Normal (Negative); Ketone, Urine Negative (Negative); Leukocyte 500 Leu/uL (Negative); Nitrite 2+ (Negative); Protein, Urine (Dipstick) 20 mg/dL (Neg-Trace); Specific Gravity, Urine 1.014 (1.002-1.036); Squamous Epithelial 0-3 HPF (0-3); Urobilinogen Normal mg/dL (Less than 2); WBC/HPF Greater than 50 HPF (0-3); pH, Urine 6.5 (5.0-9.0)
[2021-06-24] MEDS ORDERED: Ciprofloxacin 500 MG TAB ONE (22:46)
[2021-06-24] MEDS ORDERED: Nitrofurantoin Macrocrystal 50 MG CAP PO SCH (23:00)
== END 2021-06-24 23:03 | disposition home or self-care (01) ==
LOC: ERS 19:04
DX: N39.0 Urinary tract infection, site not specified (principal); I10 Essential (primary) hypertension; E78.5 Hyperlipidemia, unspecified; E11.9 Type 2 diabetes mellitus without complications
CPT/HCPCS: 36415; 71045; 80053; 81003; 81015; 83605; 83690; 84484; 85025; 87040; 87077; 87086; 87186; 93005

== ENCOUNTER 2021-07-30 12:02 | Emergency (ER) | payer SELFPAY ==
[2021-07-30 13:28] LABS: #Eosinphils 0.2 thou/uL (0.0-0.7); #Lymphocytes 1.7 thou/uL (1.20-3.40); #Monocytes 0.9 thou/uL (0.11-0.59); #Neutrophils 9.8 thou/uL (1.40-6.50); %Eosinophils 1.4 % (0.0-10.0); %Lymphocytes 13.2 % (21.0-51.0); %Neutrophils 78.5 % (42.0-75.0); Hemoglobin 12.5 g/dL (14.0-18.0); Mean Corpuscular HGB CONC 33.7 g/dL (32.0-36.0); Mean Corpuscular Hemoglobin 29.1 pg (27.0-31.0); Mean Corpuscular Volume 86.4 fL (78.0-98.0); Mean Platelet Volume 8.7 fL (7.4-10.4); Platelet Count 306 thou/uL (130-400); RBC Distribution Width 13.9 % (11.5-14.5); Red Blood Cell (RBC) Count 4.29 mill/uL (4.70-6.10); White Blood Cell (WBC) Count 12.5 thou/uL (4.8-10.8)
[2021-07-30 13:53] LABS: ALT (SGPT) 7 U/L (8-55); AST (SGOT) 11 U/L (5-34); Albumin 4.4 g/dL (3.5-5.0); Alkaline Phosphatase 93 U/L (40-110); Anion Gap 12 mmol/L (10-20); BUN (Urea Nitrogen) 15 mg/dL (8.4-25.7); Bilirubin, Total 0.5 mg/dL (0.2-1.2); Calc. Creatinine Clearance 0 mL/min (70-130); Calcium 8.9 mg/dL (7.8-10.44); Carbon Dioxide 29 mmol/L (22-29); Chloride 100 mmol/L (98-107); Globulin 3.1 g/dL (2.4-3.5); Glucose 80 mg/dL (70-105); Lipase 64 U/L (8-78); Potassium 3.5 mmol/L (3.5-5.1); Protein, Total 7.5 g/dL (6.0-8.3); Sodium 137 mmol/L (136-145)
[2021-07-30 16:00] LABS: Bacteria/HPF 3+ HPF (None Seen); Bilirubin Negative (Negative); Blood, Urine 3+ (Negative); Calcium Oxalate Crystals 3+ HPF (None Seen); Clarity Turbid (Clear); Glucose, Urine (Dipstick) Normal (Negative); Ketone, Urine Negative (Negative); Leukocyte 500 Leu/uL (Negative); Nitrite Negative (Negative); Protein, Urine (Dipstick) 100 mg/dL (Neg-Trace); RBC/HPF Greater than 50 HPF (0-3); Specific Gravity, Urine 1.023 (1.002-1.036); Squamous Epithelial 0-3 HPF (0-3); Urobilinogen Normal mg/dL (Less than 2); WBC/HPF Greater than 50 HPF (0-3); pH, Urine 5.5 (5.0-9.0)
== END 2021-07-30 19:18 | disposition home or self-care (01) ==
LOC: ERS 12:02
DX: N39.0 Urinary tract infection, site not specified (principal); K59.00 Constipation, unspecified; I10 Essential (primary) hypertension; E78.5 Hyperlipidemia, unspecified; E11.9 Type 2 diabetes mellitus without complications
CPT/HCPCS: 36415; 51702; 74177; 80053; 81003; 81015; 83690; 85025; 87086

== ENCOUNTER 2021-08-21 20:58 | Emergency (ER) | payer SELFPAY ==
[2021-08-21 21:22] LABS: #Eosinphils 0.4 thou/uL (0.0-0.7); #Monocytes 0.6 thou/uL (0.11-0.59); #Neutrophils 7.1 thou/uL (1.40-6.50); %Basophils 0.5 % (0.0-1.0); %Eosinophils 4.2 % (0.0-10.0); %Lymphocytes 19.4 % (21.0-51.0); %Monocytes 6.2 % (0.0-10.0); %Neutrophils 69.8 % (42.0-75.0); Hemoglobin 13.3 g/dL (14.0-18.0); Mean Corpuscular HGB CONC 33.7 g/dL (32.0-36.0); Mean Corpuscular Hemoglobin 29.6 pg (27.0-31.0); Mean Corpuscular Volume 87.7 fL (78.0-98.0); Mean Platelet Volume 8.2 fL (7.4-10.4); Platelet Count 381 thou/uL (130-400); RBC Distribution Width 14.2 % (11.5-14.5); Red Blood Cell (RBC) Count 4.48 mill/uL (4.70-6.10); White Blood Cell (WBC) Count 10.2 thou/uL (4.8-10.8)
[2021-08-21 21:45] LABS: ALT (SGPT) Less than 7 U/L (8-55); AST (SGOT) 12 U/L (5-34); Albumin 4.4 g/dL (3.5-5.0); Alkaline Phosphatase 109 U/L (40-110); Anion Gap 15 mmol/L (10-20); BUN (Urea Nitrogen) 9 mg/dL (8.4-25.7); Bilirubin, Total 0.4 mg/dL (0.2-1.2); Calc. Creatinine Clearance 0 mL/min (70-130); Calcium 8.9 mg/dL (7.8-10.44); Carbon Dioxide 25 mmol/L (22-29); Chloride 101 mmol/L (98-107); Globulin 3.5 g/dL (2.4-3.5); Glucose 115 mg/dL (70-105); Protein, Total 7.9 g/dL (6.0-8.3); Sodium 138 mmol/L (136-145)
[2021-08-21 22:01] LABS: Potassium 2.7 mmol/L (3.5-5.1)
[2021-08-21] MEDS ORDERED: Potassium Chloride 20 MEQ TAB ONE (22:37)
[2021-08-21 22:49] LABS: Bacteria/HPF 4+ HPF (None Seen); Bilirubin Negative (Negative); Blood, Urine 2+ (Negative); Calcium Oxalate Crystals 1+ HPF (None Seen); Clarity Extra Turbid (Clear); Glucose, Urine (Dipstick) Normal (Negative); Ketone, Urine Negative (Negative); Leukocyte 500 Leu/uL (Negative); Nitrite Negative (Negative); Protein, Urine (Dipstick) 100 mg/dL (Neg-Trace); RBC/HPF Greater than 50 HPF (0-3); Renal Epithelial 0-3 HPF (None Seen); Specific Gravity, Urine 1.023 (1.002-1.036); Squamous Epithelial 0-3 HPF (0-3); Urobilinogen Normal mg/dL (Less than 2); WBC/HPF Greater than 50 HPF (0-3)
== END 2021-08-21 23:24 | disposition home or self-care (01) ==
LOC: ERS 20:58
DX: T83.511A Infection and inflammatory reaction due to indwelling urethral catheter, initial encounter (principal); E87.6 Hypokalemia; I10 Essential (primary) hypertension; E78.5 Hyperlipidemia, unspecified
CPT/HCPCS: 36415; 80053; 81003; 81015; 85025; 87077; 87086; 87186; 99284

== ENCOUNTER 2021-09-27 20:15 | Emergency (ER) | payer SELFPAY ==
[2021-09-27 20:55] LABS: Bacteria/HPF 1+ HPF (None Seen); Bilirubin Negative (Negative); Blood, Urine 2+ (Negative); Clarity Clear (Clear); Glucose, Urine (Dipstick) Normal (Negative); Ketone, Urine Negative (Negative); Leukocyte 250 Leu/uL (Negative); Nitrite Negative (Negative); Protein, Urine (Dipstick) 30 mg/dL (Neg-Trace); RBC/HPF 21-50 HPF (0-3); Renal Epithelial 0-3 HPF (None Seen); Specific Gravity, Urine 1.017 (1.002-1.036); Squamous Epithelial 0-3 HPF (0-3); Urobilinogen Normal mg/dL (Less than 2)
[2021-09-27] MEDS ORDERED: Bacitracin 1 PK ONE ×2 (22:10→22:14)
== END 2021-09-27 22:34 | disposition home or self-care (01) ==
LOC: ERS 20:15
DX: L03.311 Cellulitis of abdominal wall (principal); I10 Essential (primary) hypertension; E78.5 Hyperlipidemia, unspecified; E11.9 Type 2 diabetes mellitus without complications; Z79.899 Other long term (current) drug therapy; Z79.84 Long term (current) use of oral hypoglycemic drugs
CPT/HCPCS: 81003; 81015; 99283

== ENCOUNTER 2021-10-25 14:30 | Emergency (ER) | payer SELFPAY ==
[2021-10-25 17:00] LABS: Bilirubin Negative (Negative); Blood, Urine 3+ (Negative); Clarity Turbid (Clear); Glucose, Urine (Dipstick) Normal (Negative); Ketone, Urine Negative (Negative); Leukocyte 500 Leu/uL (Negative); Nitrite 2+ (Negative); Protein, Urine (Dipstick) 200 mg/dL (Neg-Trace); RBC/HPF Greater than 50 HPF (0-3); Specific Gravity, Urine 1.018 (1.002-1.036); Squamous Epithelial None Seen HPF (0-3); Urobilinogen Normal mg/dL (Less than 2); WBC/HPF Greater than 50 HPF (0-3); pH, Urine 6.5 (5.0-9.0)
[2021-10-25 17:01] LABS: Bacteria/HPF 1+ HPF (None Seen)
== END 2021-10-25 17:34 | disposition home or self-care (01) ==
LOC: ERS 14:30
DX: T83.518A Infection and inflammatory reaction due to other urinary catheter, initial encounter (principal); E11.9 Type 2 diabetes mellitus without complications; I10 Essential (primary) hypertension; E78.5 Hyperlipidemia, unspecified
CPT/HCPCS: 81003; 81015; 87077; 87086; 87186; 99283

== ENCOUNTER 2021-11-25 16:52 | Emergency (ER) | payer SELFPAY ==
[~2021-11-25 16:52] MED LIST: Iopamidol-370 76% 500 ML 1 ML ONE
[2021-11-25 17:21] LABS: #Eosinphils 0.2 thou/uL (0.0-0.7); #Lymphocytes 2.2 thou/uL (1.20-3.40); #Monocytes 0.4 thou/uL (0.11-0.59); #Neutrophils 5.2 thou/uL (1.40-6.50); %Basophils 0.5 % (0.0-1.0); %Lymphocytes 26.8 % (21.0-51.0); %Monocytes 5.3 % (0.0-10.0); %Neutrophils 64.4 % (42.0-75.0); Hemoglobin 14.6 g/dL (14.0-18.0); Mean Corpuscular HGB CONC 32.4 g/dL (32.0-36.0); Mean Corpuscular Volume 89.5 fL (78.0-98.0); Mean Platelet Volume 8.4 fL (7.4-10.4); Platelet Count 361 thou/uL (130-400); RBC Distribution Width 13.6 % (11.5-14.5); Red Blood Cell (RBC) Count 5.02 mill/uL (4.70-6.10)
[2021-11-25 17:43] LABS: ALT (SGPT) 7 U/L (8-55); AST (SGOT) 15 U/L (5-34); Albumin 4.7 g/dL (3.5-5.0); Alkaline Phosphatase 74 U/L (40-110); Anion Gap 15 mmol/L (10-20); BUN (Urea Nitrogen) 7 mg/dL (8.4-25.7); Bilirubin, Total 0.6 mg/dL (0.2-1.2); Calc. Creatinine Clearance 0 mL/min (70-130); Calcium 9.1 mg/dL (7.8-10.44); Carbon Dioxide 26 mmol/L (22-29); Chloride 103 mmol/L (98-107); Globulin 3.6 g/dL (2.4-3.5); Glucose 97 mg/dL (70-105); Potassium 3.2 mmol/L (3.5-5.1); Protein, Total 8.3 g/dL (6.0-8.3); Sodium 141 mmol/L (136-145)
[2021-11-25 20:03] LABS: Bacteria/HPF 4+ HPF (None Seen); Bilirubin Negative (Negative); Blood, Urine 3+ (Negative); Clarity Turbid (Clear); Glucose, Urine (Dipstick) Normal (Negative); Ketone, Urine Negative (Negative); Leukocyte 500 Leu/uL (Negative); Nitrite Negative (Negative); Protein, Urine (Dipstick) 300 mg/dL (Neg-Trace); RBC/HPF Greater than 50 HPF (0-3); Specific Gravity, Urine 1.014 (1.002-1.036); Squamous Epithelial None Seen HPF (0-3); Urobilinogen Normal mg/dL (Less than 2); WBC/HPF Greater than 50 HPF (0-3); Yeast-Budding Rare HPF (None Seen); Yeast-Hyphae Rare HPF (None Seen); pH, Urine 7.5 (5.0-9.0)
[2021-11-25] MEDS ORDERED: Potassium Chloride 20 MEQ TAB ONE (21:26)
== END 2021-11-25 21:45 | disposition home or self-care (01) ==
LOC: ERS 16:52
DX: N39.0 Urinary tract infection, site not specified (principal); D17.71 Benign lipomatous neoplasm of kidney; E11.9 Type 2 diabetes mellitus without complications; E78.5 Hyperlipidemia, unspecified; I10 Essential (primary) hypertension
CPT/HCPCS: 36415; 74177; 80053; 81003; 81015; 85025; Q9967

== ENCOUNTER 2022-01-09 17:31 | Emergency (ER) | payer SELFPAY ==
[2022-01-09 19:13] LABS: #Basophils 0.1 thou/uL (0.0-0.2); #Eosinphils 0.2 thou/uL (0.0-0.7); #Lymphocytes 1.9 thou/uL (1.20-3.40); #Monocytes 0.6 thou/uL (0.11-0.59); #Neutrophils 5.4 thou/uL (1.40-6.50); %Basophils 0.9 % (0.0-1.0); %Eosinophils 2.7 % (0.0-10.0); %Monocytes 6.9 % (0.0-10.0); %Neutrophils 66.5 % (42.0-75.0); Hemoglobin 13.1 g/dL (14.0-18.0); Mean Corpuscular HGB CONC 32.6 g/dL (32.0-36.0); Mean Corpuscular Hemoglobin 29.6 pg (27.0-31.0); Mean Corpuscular Volume 90.8 fL (78.0-98.0); Platelet Count 377 thou/uL (130-400); RBC Distribution Width 13.3 % (11.5-14.5); Red Blood Cell (RBC) Count 4.41 mill/uL (4.70-6.10); White Blood Cell (WBC) Count 8.1 thou/uL (4.8-10.8)
[2022-01-09 19:35] LABS: ALT (SGPT) Less than 7 U/L (8-55); AST (SGOT) 12 U/L (5-34); Albumin 4.3 g/dL (3.5-5.0); Alkaline Phosphatase 74 U/L (40-110); Anion Gap 17 mmol/L (10-20); BUN (Urea Nitrogen) 9 mg/dL (8.4-25.7); Bilirubin, Total 0.3 mg/dL (0.2-1.2); Calc. Creatinine Clearance 0 mL/min (70-130); Calcium 9.1 mg/dL (7.8-10.44); Carbon Dioxide 25 mmol/L (22-29); Chloride 100 mmol/L (98-107); Estimated GFR 105; Globulin 3.5 g/dL (2.4-3.5); Glucose 92 mg/dL (70-105); Potassium 3.1 mmol/L (3.5-5.1); Protein, Total 7.8 g/dL (6.0-8.3); Sodium 139 mmol/L (136-145)
[2022-01-09 20:31] LABS: Bilirubin Large (Negative); Blood, Urine Large (Negative); Glucose, Urine (Dipstick) Negative (Negative); Ketone, Urine 15 mg/dL (Negative); Leukocyte Large (Negative); Nitrite Positive (Negative); Protein, Urine (Dipstick) > or equal to 300 mg/dL (Neg-Trace)
[2022-01-09 20:37] LABS: Clarity Cloudy (Clear)
[2022-01-09 20:38] LABS: Bacteria/HPF 2+ HPF (None Seen); RBC/HPF Greater than 50 HPF (0-3)
[2022-01-09] MEDS ORDERED: Potassium Chloride 20 MEQ TAB ONE (20:41)
== END 2022-01-09 21:16 | disposition home or self-care (01) ==
LOC: ERS 17:31
DX: Z46.6 Encounter for fitting and adjustment of urinary device (principal); I10 Essential (primary) hypertension; E78.5 Hyperlipidemia, unspecified; E11.9 Type 2 diabetes mellitus without complications; N40.0 Benign prostatic hyperplasia without lower urinary tract symptoms
CPT/HCPCS: 36415; 51705; 80053; 81003; 81015; 83605; 85025; 87077; 87086; 87186

== ENCOUNTER 2022-01-17 16:03 | Inpatient (IN) | payer OTHER, SELFPAY ==
[~2022-01-17 16:03] MED LIST changes: +Heparin 1,000 UNITS/ML VIAL ONE; -Iopamidol-370 76% 500 ML 1 ML ONE
[2022-01-17 17:08] LABS: #Eosinphils 0.3 thou/uL (0.0-0.7); #Monocytes 0.5 thou/uL (0.11-0.59); #Neutrophils 3.8 thou/uL (1.40-6.50); %Basophils 0.6 % (0.0-1.0); %Eosinophils 4.9 % (0.0-10.0); %Lymphocytes 29.7 % (21.0-51.0); %Monocytes 7.7 % (0.0-10.0); %Neutrophils 57.1 % (42.0-75.0); Hemoglobin 12.4 g/dL (14.0-18.0); Mean Corpuscular HGB CONC 32.9 g/dL (32.0-36.0); Mean Corpuscular Hemoglobin 29.7 pg (27.0-31.0); Mean Corpuscular Volume 90.3 fL (78.0-98.0); Mean Platelet Volume 8.6 fL (7.4-10.4); Platelet Count 366 thou/uL (130-400); RBC Distribution Width 13.4 % (11.5-14.5); Red Blood Cell (RBC) Count 4.18 mill/uL (4.70-6.10); White Blood Cell (WBC) Count 6.7 thou/uL (4.8-10.8)
[2022-01-17 17:23] LABS: ALT (SGPT) 8 U/L (8-55); AST (SGOT) 12 U/L (5-34); Albumin 4.3 g/dL (3.5-5.0); Alkaline Phosphatase 68 U/L (40-110); Anion Gap 14 mmol/L (10-20); BUN (Urea Nitrogen) 13 mg/dL (8.4-25.7); Bilirubin, Total 0.5 mg/dL (0.2-1.2); Calc. Creatinine Clearance 0 mL/min (70-130); Carbon Dioxide 28 mmol/L (22-29); Chloride 99 mmol/L (98-107); Estimated GFR 88; Globulin 3.5 g/dL (2.4-3.5); Glucose 93 mg/dL (70-105); Protein, Total 7.8 g/dL (6.0-8.3); Sodium 138 mmol/L (136-145)
[2022-01-17 17:48] LABS: Potassium 2.9 mmol/L (3.5-5.1)
[2022-01-17] MEDS ORDERED: Potassium Chloride 20 MEQ TAB ONE (18:44)
[2022-01-17] MEDS ORDERED: Piperacillin/Tazobactam 3.375 GM VIAL ONE (18:44)
[2022-01-17 19:32] LABS: Bacteria/HPF 4+ HPF (None Seen); Bilirubin Negative (Negative); Blood, Urine Trace (Negative); Calcium Oxalate Crystals Rare HPF (None Seen); Clarity Turbid (Clear); Glucose, Urine (Dipstick) Normal (Negative); Ketone, Urine Negative (Negative); Leukocyte 500 Leu/uL (Negative); Nitrite Negative (Negative); Protein, Urine (Dipstick) 100 mg/dL (Neg-Trace); Renal Epithelial 0-3 HPF (None Seen); Specific Gravity, Urine 1.021 (1.002-1.036); Squamous Epithelial None Seen HPF (0-3); Urobilinogen Normal mg/dL (Less than 2); WBC/HPF Greater than 50 HPF (0-3); pH, Urine 6.5 (5.0-9.0)
[2022-01-17] MEDS ORDERED: Morphine 2 MG/ML VIAL ONE (21:12)
[2022-01-17] MEDS ORDERED: Ondansetron ODT 4 MG TAB PO PRN (21:36)
[2022-01-17] MEDS ORDERED: Acetaminophen 650 MG Suppository PR PRN (21:36)
[2022-01-17] MEDS ORDERED: Dextrose 50% Abboject 50 ML SYRINGE SLOW IVP PRN (21:36)
[2022-01-17] MEDS ORDERED: Dextrose 5% in Water 1,000 ML IV PRN (21:36)
[2022-01-17] MEDS ORDERED: Acetaminophen 325 MG TAB PO PRN (21:36)
[2022-01-17] MEDS ORDERED: Ondansetron PF 4 MG/2 ML Vial IVP PRN (21:36)
[2022-01-17] MEDS ORDERED: HumaLOG 300 UNITS/3 ML VIAL SC PRN ×2 (21:36)
[2022-01-17] MEDS ORDERED: Electrolyte Replacement Protocol 1 EACH FS SCH (21:45)
[2022-01-17] MEDS ORDERED: Electrolyte Replacement Protocol FS PRN (21:45)
[2022-01-17 22:10] VITALS: BMI 28.8
[2022-01-17] MEDS ORDERED: Potassium Chloride 20 MEQ TAB PO SCH (23:00)
[2022-01-18 00:43] LABS: Magnesium 1.5 mg/dL (1.6-2.6)
[2022-01-18] MEDS ORDERED: Magnesium 2 GM/50 ML(in water) 2 GM in Premix Bag 1 BAG IVPB SCH (01:00)
[2022-01-18 07:11] LABS: #Eosinphils 0.3 thou/uL (0.0-0.7); #Monocytes 0.5 thou/uL (0.11-0.59); %Basophils 0.5 % (0.0-1.0); %Eosinophils 3.9 % (0.0-10.0); %Lymphocytes 29.4 % (21.0-51.0); %Monocytes 6.8 % (0.0-10.0); %Neutrophils 59.4 % (42.0-75.0); Mean Corpuscular Hemoglobin 30.2 pg (27.0-31.0); Mean Corpuscular Volume 91.5 fL (78.0-98.0); Mean Platelet Volume 8.5 fL (7.4-10.4); Platelet Count 347 thou/uL (130-400); RBC Distribution Width 13.2 % (11.5-14.5); Red Blood Cell (RBC) Count 3.98 mill/uL (4.70-6.10); White Blood Cell (WBC) Count 6.7 thou/uL (4.8-10.8)
[2022-01-18 07:30] LABS: Anion Gap 15 mmol/L (10-20); BUN (Urea Nitrogen) 10 mg/dL (8.4-25.7); Calc. Creatinine Clearance 148 mL/min (70-130); Calcium 8.7 mg/dL (7.8-10.44); Carbon Dioxide 27 mmol/L (22-29); Chloride 103 mmol/L (98-107); Estimated GFR 112; Glucose 83 mg/dL (70-105); Potassium 3.2 mmol/L (3.5-5.1); Sodium 142 mmol/L (136-145)
[2022-01-18] MEDS ORDERED: Potassium Chloride 20 MEQ TAB PO SCH (09:00)
[2022-01-18] MEDS: Acetaminophen/Codeine 30-300mg Tablet PO PRN ×2 (14:41→20:37)
[2022-01-19 07:16] LABS: Anion Gap 12 mmol/L (10-20); BUN (Urea Nitrogen) 10 mg/dL (8.4-25.7); Calc. Creatinine Clearance 152 mL/min (70-130); Calcium 8.9 mg/dL (7.8-10.44); Carbon Dioxide 27 mmol/L (22-29); Chloride 106 mmol/L (98-107); Estimated GFR 113; Glucose 86 mg/dL (70-105); Potassium 3.6 mmol/L (3.5-5.1); Sodium 141 mmol/L (136-145)
[2022-01-19 10:57] LABS: Bacteria/HPF 3+ HPF (None Seen); Bilirubin Negative (Negative); Blood, Urine Negative (Negative); Clarity Turbid (Clear); Glucose, Urine (Dipstick) Normal (Negative); Ketone, Urine Negative (Negative); Leukocyte 500 Leu/uL (Negative); Nitrite 2+ (Negative); Protein, Urine (Dipstick) Negative (Neg-Trace); Specific Gravity, Urine 1.013 (1.002-1.036); Squamous Epithelial None Seen HPF (0-3); Urobilinogen Normal mg/dL (Less than 2); WBC/HPF Greater than 50 HPF (0-3); pH, Urine 7.5 (5.0-9.0)
[2022-01-19] MEDS ORDERED: Meropenem 1 GM in Sodium Chloride 0.9% 100 ML IVPB SCH (14:00)
[2022-01-19] MEDS: Acetaminophen/Codeine 30-300mg Tablet PO PRN (18:01)
[2022-01-19] MEDS: Meropenem 1 GM in Sodium Chloride 0.9% 100 ML IVPB SCH (21:04)
[2022-01-20] MEDS: Meropenem 1 GM in Sodium Chloride 0.9% 100 ML IVPB SCH ×3 (05:03→22:04)
[2022-01-20 09:21] LABS: Anion Gap 13 mmol/L (10-20); BUN (Urea Nitrogen) 10 mg/dL (8.4-25.7); Calc. Creatinine Clearance 145 mL/min (70-130); Calcium 9.1 mg/dL (7.8-10.44); Carbon Dioxide 26 mmol/L (22-29); Chloride 103 mmol/L (98-107); Estimated GFR 111; Glucose 125 mg/dL (70-105); Potassium 3.3 mmol/L (3.5-5.1); Sodium 139 mmol/L (136-145)
[2022-01-20] MEDS ORDERED: Potassium Chloride 20 MEQ TAB PO SCH (11:00)
[2022-01-20] MEDS: Acetaminophen/Codeine 30-300mg Tablet PO PRN ×2 (12:50→20:28)
[2022-01-21] MEDS: Meropenem 1 GM in Sodium Chloride 0.9% 100 ML IVPB SCH ×2 (05:51→14:33)
[2022-01-21] MEDS: Acetaminophen/Codeine 30-300mg Tablet PO PRN (05:55)
[2022-01-21 06:57] LABS: Anion Gap 11 mmol/L (10-20); BUN (Urea Nitrogen) 11 mg/dL (8.4-25.7); Calc. Creatinine Clearance 152 mL/min (70-130); Calcium 8.9 mg/dL (7.8-10.44); Carbon Dioxide 28 mmol/L (22-29); Chloride 104 mmol/L (98-107); Estimated GFR 113; Glucose 81 mg/dL (70-105); Potassium 3.7 mmol/L (3.5-5.1); Sodium 139 mmol/L (136-145)
[2022-01-21 08:32] VITALS: BP 146/87; TEMP 97.9
== END 2022-01-21 18:58 | disposition home or self-care (01) | DRG 699 ==
LOC: ERS 16:03 → T4-B 19:29 → OBSVTOIN 01-19 11:12
PROVIDERS: ADMIT Student in an Organized Health Care Education/Training Program; ATTEND Internal Medicine
PROC: 02HV33Z Insertion of Infusion Device into Superior Vena Cava, Percutaneous Approach (ICD-10-PCS; principal; 2022-01-20)
PROC: B5181ZA Fluoroscopy of Superior Vena Cava using Low Osmolar Contrast, Guidance (ICD-10-PCS; 2022-01-20)
PROC: B548ZZA Ultrasonography of Superior Vena Cava, Guidance (ICD-10-PCS; 2022-01-20)
DX: T83.510A Infection and inflammatory reaction due to cystostomy catheter, initial encounter (principal); N39.0 Urinary tract infection, site not specified; N13.8 Other obstructive and reflux uropathy; Y84.6 Urinary catheterization as the cause of abnormal reaction of the patient, or of later complication, without mention of misadventure at the time of the procedure; Z20.822 Contact with and (suspected) exposure to COVID-19; E87.6 Hypokalemia; E11.9 Type 2 diabetes mellitus without complications; N40.1 Benign prostatic hyperplasia with lower urinary tract symptoms; E83.42 Hypomagnesemia; I10 Essential (primary) hypertension; E78.5 Hyperlipidemia, unspecified; Z88.8 Allergy status to other drugs, medicaments and biological substances; Z86.73 Personal history of transient ischemic attack (TIA), and cerebral infarction without residual deficits; Z79.899 Other long term (current) drug therapy; Z79.82 Long term (current) use of aspirin
CPT/HCPCS: 36415; 36416; 36569; 76770; 80048; 80053; 81001; 81003; 81015; 83605; 83735; 85025; 87040; 87077; 87086; 87186; 96365; 96375; C1751; G0378; J2185; J2270; J2543; J3475; J3490; U0003; U0005

== ENCOUNTER 2022-07-25 21:59 | Emergency (ER) | payer OTHER, SELFPAY | END 2022-07-25 23:08 | disposition home or self-care (01) | LOC: ERS 21:59 | DX: T83.028A Displacement of other urinary catheter, initial encounter (principal); I10 Essential (primary) hypertension; E78.5 Hyperlipidemia, unspecified; E11.9 Type 2 diabetes mellitus without complications | CPT/HCPCS: 99283 ==

== ENCOUNTER 2022-08-19 11:02 | Outpatient (CLI) | payer OTHER | END 2022-08-19 11:03 | disposition home or self-care (01) | LOC: BICRAD 11:02 | PROVIDERS: ATTEND Internal Medicine | DX: Z02.71 Encounter for disability determination (principal); M47.816 Spondylosis without myelopathy or radiculopathy, lumbar region | CPT/HCPCS: 72040; 72100 ==

== ENCOUNTER 2022-09-28 02:12 | Emergency (ER) | payer SELFPAY | END 2022-09-28 07:00 | disposition home or self-care (01) | LOC: ERS 02:12 | DX: T85.9XXA Unspecified complication of internal prosthetic device, implant and graft, initial encounter (principal); I10 Essential (primary) hypertension; E78.5 Hyperlipidemia, unspecified; E11.9 Type 2 diabetes mellitus without complications; Z79.899 Other long term (current) drug therapy; Z79.84 Long term (current) use of oral hypoglycemic drugs | CPT/HCPCS: 51705 ==

== ENCOUNTER 2022-10-07 18:30 | Emergency (ER) | payer SELFPAY | END 2022-10-07 20:58 | disposition home or self-care (01) | LOC: ERS 18:30 | DX: T83.098A Other mechanical complication of other urinary catheter, initial encounter (principal); I10 Essential (primary) hypertension; E78.5 Hyperlipidemia, unspecified; E11.9 Type 2 diabetes mellitus without complications | CPT/HCPCS: 51705 ==

== ENCOUNTER 2024-05-28 11:53 | Emergency (ER) | payer OTHER ==
[2024-05-28] MEDS ORDERED: Lidocaine 4% Patch ONE (12:22)
[2024-05-28] MEDS ORDERED: Ketorolac Tromethamine 30 MG (1 mL) VIAL ONE (12:22)
[2024-05-28] MEDS ORDERED: Cyclobenzaprine 10 MG TAB ONE (13:29)
[2024-05-28] MEDS ORDERED: Morphine 4 MG/ML VIAL ONE (13:29)
[2024-05-28 15:37] LABS: Bacteria/HPF None Seen HPF (None Seen); Bilirubin Negative (Negative); Blood, Urine Negative (Negative); CAUTI Indications for Culture Pelvic or flank pain; Clarity Clear (Clear); Glucose, Urine (Dipstick) Normal (Negative); Ketone, Urine Negative (Negative); Leukocyte 500 Leu/uL (Negative); Nitrite Negative (Negative); Protein, Urine (Dipstick) 70 mg/dL (Neg-Trace); RBC/HPF 0-3 HPF (0-3); Specific Gravity, Urine 1.031 (1.002-1.036); Squamous Epithelial None Seen HPF (0-3); Urobilinogen Normal mg/dL (Less than 2)
[2024-05-28 15:42] LABS: Sperm/HPF Rare HPF (None Seen)
[2024-05-28 15:44] LABS: Urine Culture Reflex Yes Yes
== END 2024-05-28 18:12 | disposition home or self-care (01) ==
LOC: ERS 11:53
DX: S39.012A Strain of muscle, fascia and tendon of lower back, initial encounter (principal); I10 Essential (primary) hypertension; E11.9 Type 2 diabetes mellitus without complications; R06.02 Shortness of breath; D35.01 Benign neoplasm of right adrenal gland; X50.0XXA Overexertion from strenuous movement or load, initial encounter
CPT/HCPCS: 71045; 74176; 81001; 87077; 87086; 87186; 96372; J1885; J2270

== ENCOUNTER 2025-05-06 18:02 | Emergency (ER) | payer MEDICAID, OTHER ==
[~2025-05-06 18:02] MED LIST changes: -Heparin 1,000 UNITS/ML VIAL ONE; +Iopamidol-370 76% 500 ML MDV (1 ML CHARGE) ONE
[2025-05-06 20:20] LABS: #Basophils 0.04 10x3/uL (0.0-0.2); #Eosinophils 0.31 10x3/uL (0.0-0.7); #Monocytes 0.49 10x3/uL (0.11-0.59); #Neutrophils 5.62 10x3/uL (1.40-6.50); %Basophils 0.5 % (0.0-1.0); %Eosinophils 3.7 % (0.0-10.0); %Lymphocytes 21.8 % (21.0-51.0); %Monocytes 5.9 % (0.0-10.0); %Neutrophils 67.9 % (42.0-75.0); Hematocrit 35.1 % (42.0-52.0); Hemoglobin 11.0 g/dL (14.0-18.0); Mean Corpuscular Hemoglobin 27.0 pg (27.0-31.0); Mean Corpuscular Volume 86.0 fL (78.0-98.0); Platelet Count 214 10x3/uL (130-400); Red Blood Cell (RBC) Count 4.08 mill/uL (4.70-6.10); White Blood Cell (WBC) Count 8.29 10x3/uL (4.8-10.8)
[2025-05-06 20:34] LABS: ALT (SGPT) 14 U/L (Less than 45); AST (SGOT) 18 U/L (11-34); Albumin 4.0 g/dL (3.1-4.5); Alkaline Phosphatase 105 U/L (40-110); Anion Gap 14 mmol/L (10-20); BUN (Urea Nitrogen) 12 mg/dL (8.4-25.7); Bilirubin, Total 0.2 mg/dL (0.3-1.2); Calc. Creatinine Clearance 0 mL/min (70-130); Calcium 8.7 mg/dL (7.8-10.44); Carbon Dioxide 26 mmol/L (22-29); Chloride 104 mmol/L (98-107); Globulin 3.2 g/dL (2.4-3.5); Glucose 101 mg/dL (70-105); Potassium 4.0 mmol/L (3.5-5.1); Sodium 140 mmol/L (136-145)
== END 2025-05-06 20:45 | disposition home or self-care (01) ==
LOC: ERS 18:02
DX: K08.89 Other specified disorders of teeth and supporting structures (principal); K04.7 Periapical abscess without sinus; I10 Essential (primary) hypertension; E78.5 Hyperlipidemia, unspecified; E11.9 Type 2 diabetes mellitus without complications
CPT/HCPCS: 64400; 70491; 80053; 85025; 96374; J0665; J3010; Q9967